=== PATIENT | female | born 2000 | race Caucasian/White ===

== ENCOUNTER 2022-10-13 00:49 | Emergency (ER) | payer MEDICARE, MEDICAID, SELFPAY ==
[2022-10-13 00:51] VITALS: BP 137/89; PULSE 90; RESP 15; TEMP 36.1; O2SAT 98; BMI 24.6
--- NOTE | 2022-10-13 01:18 | CT_ITS ---
INDICATION: abd pain NAUSEA,VOMITING AND DIARRHEA WITH PAIN X 2 WEEKS HX:IBS EXAMINATION: CT ABDOMEN AND PELVIS WITH CONTRAST - CT Abdomen And Pelvis W/ Contrast Injection TECHNIQUE: Helically acquired images were obtained of the abdomen and pelvis following IV contrast. A radiation dose optimization technique was used for this scan. IV Contrast dosage and agent: Oral contrast: None. COMPARISON: None. FINDINGS: LOWER CHEST: Unremarkable. LIVER: Unremarkable. GALLBLADDER/BILE DUCTS: Unremarkable. PANCREAS: Unremarkable. SPLEEN: Unremarkable. ADRENAL GLANDS: Unremarkable. KIDNEYS / URETERS: Unremarkable. BOWEL / MESENTERY: Slight wall thickening of the ascending colon with minimal adjacent stranding. No bowel obstruction. Moderate amount of stool throughout the colon APPENDIX: Identified and normal. No evidence of acute appendicitis. PERITONEUM: No free air. No free fluid. VESSELS: Abdominal aorta is normal caliber. RETROPERITONEUM: Unremarkable. REPRODUCTIVE ORGANS: Left ovary 2.7 cm cyst or follicle. BLADDER: Unremarkable. ABDOMINAL WALL: Unremarkable. BONES: No acute abnormality. OTHER: None. CT/Abdomen/Pelvis W IV Cont ONLY IMPRESSION: Findings suggest mild acute colitis ascending colon. Electronically Signed: Chelsey Leary MD at 3:34 EST ,
[2022-10-13] MEDS: 0.9% Normal Saline 1,000 ML 999 ML IV (01:43)
[2022-10-13] MEDS: Ondansetron 4 MG/2 ML Vial IV (01:43)
[2022-10-13 02:00] LABS: Mucous, Urine 0 SEEN /hpf (<or=2+); Squamous Epithelial Cells - UA 0 SEEN /hpf (5-10)
[2022-10-13 02:02] LABS: Absolute Lymphocyte Count 4.58 X10^3/uL (0.83-4.51); Absolute Neutrophil Count 4.2 X10^3/uL (2.0-7.7); Basophil# 0.03 X10^3/uL; Basophil% 0.3 % (0-1); Eosinophil# 0.01 X10^3/uL; Eosinophils% 0.1 % (0-5); Hematocrit 44.4 % (37-47); Hemoglobin 14.2 g/dL (12.0-15.0); Lymphocyte # 4.58 X10^3/ul (0.83-4.51); Lymphocyte % 49.5 % (19-41); Mean Corpuscular Hgb 28.8 pg (27.0-32.0); Mean Corpuscular Volume 90.1 fL (81-99); Mean Platelet Vol. 9.9 fl (6.2-12.0); Monocyte# 0.41 X10^3/uL; Monocyte% 4.4 % (0-10); NRBC Flagged by Analyzer 0 % (0-5); Neutrophil % 45.5 % (47-70); Platelet Count 269 K/mm3 (150-450); RBC Distribution Width CV 12.7 % (11.6-14.6); RBC Distribution Width SD 41.5 fl (35.1-43.9); Red Blood Count 4.93 M/mm3 (4.2-5.4); White Blood Count 9.3 K/mm3 (4.4-11.0)
[2022-10-13 02:03] LABS: Color, Urine Yellow (Yellow); Glucose, Dipstick Normal (Normal); Ketone-Dipstick Negative (Negative); Leukocyte Esterase-Dipstick Negative /ul (Negative); Nitrite-Dipstick Negative (Negative); Occult Blood-Urine Negative /ul (Negative); Protein-Dipstick Negative (Negative); Urine Bilirubin Dipstick Negative (Negative); Urine Clarity Clear (Clear); Urine Urobilinogen Normal (Normal)
--- NOTE | 2022-10-13 02:26 | EDS_ITS ---
HPI History of Present Illness Chief Complaint: Abd Pain Narrative Narrative: Patient is a 21-year-old female with past medical history of IBS. She reports for the past 2 weeks she has had generalized abdominal discomfort with nausea and frequent urination. She states when symptoms first began she did have a few bouts of vomiting but that has since resolved but nausea has persisted. She also denies any loose stool or diarrhea. She states she took a home test recently which was negative. She states that she is given the symptoms time to resolve and they have not done so and secondary to that she presents for evaluation. PFSH PFSH Home Medications metronidazole 500 mg tablet 500 mg PO TID 7 days #21 tabs 10/13/22 [Rx Last Taken Unknown] promethazine 25 mg tablet 25 mg PO TID PRN nausea and vomiting #21 tabs 10/13/22 [Rx Last Taken Unknown] Allergy/AdvReac Type Severity Reaction Status Date / Time topiramate [From Topamax] Allergy Itching Verified 10/13/22 00:55 ketorolac [From Toradol] AdvReac NEEDS Verified 10/13/22 00:55 FOLLOW-UP prochlorperazine AdvReac NEEDS Verified 10/13/22 00:55 [From Compazine] FOLLOW-UP Social History Smoking Status: Never smoker ROS ROS ED Constitutional Constitutional ED: Denies chills or fever(s) ENT ENT ED: Denies sore throat Cardiovascular Cardiovascular: Denies chest pain Respiratory/Chest Respiratory/Chest: Denies cough or dyspnea Gastrointestinal Gastrointestinal: Reports abdominal pain and nausea; Denies diarrhea or vomiting Genitourinary Genitourinary ED: Reports urinary frequency; Denies dysuria or hematuria Musculoskeletal Musculoskeletal: Denies myalgias Integumentary Denies rash Neurologic Neurologic: Denies headache(s) Hematologic/Lymphatic Hematologic/Lymphatic: Denies easy bleeding or easy bruising EXAM Physical Exam Const Vital Signs: 10/13/22 00:51 Temperature 97.0 F L Temperature Source Temporal Pulse Rate 90 Respiratory Rate 15 Blood Pressure 137/89 H Blood Pressure Mean 105 Pulse Ox 98 Positive well nourished and well developed General Appearance ED: well developed HEENT Reports dry mucous membranes HEENT Narrative: Mucous membranes are slightly dry and tacky without secondary changes to suggest infection in the posterior pharynx Mouth ED: Yes dry mucous membranes Mouth: dry mucous membranes Eyes PERRL and EOMs intact bilaterally General Eye ED: Negative for scleral icterus Neck supple Resp normal respiratory effort and clear to auscultation bilaterally Cardio regular rate and regular rhythm Rate: other Other Details: Radial pulses are plus 2 out of 4 bilaterally are equal and symmetric GI non-distended GI Narrative: Abdomen is soft and nondistended with normoactive bowel sounds. Patient has mild diffuse pain on palpation without voluntary guarding or rigidity. Auscultation: normoactive bowel sounds Palpation: soft Back/Spine no CVA tenderness Extremity normal to inspection Neuro oriented x3 and CN's II-XII intact bilaterally Sensorium / Orientation: alert Psych mental status grossly normal Skin no rashes or lesions noted and skin turgor normal General Skin Exam: Negative for jaundice MDM MDM MDM Narrative Medical decision making narrative: Patient presented to the ER with stable vitals and a soft nonsurgical abdomen. However she reported 2 weeks of generalized abdominal discomfort and there was concern she had an underlying infection such as colitis gallbladder dysfunction pancreatitis diverticulitis related complication or UTI as she also reported urinary frequency. Therefore I did elect to perform basic laboratory studies and based on the prolonged nature of symptoms added a CT scan of her abdomen and pelvis. Labs revealed no clinically significant findings. CT scan however did show changes consistent with mild colitis. She also has a left ovarian cyst but this is small in size and patient is not having any pain in this direct area so I have low concern for torsion or any secondary complication from the cyst. On reevaluation patient is resting comfortably abdomen remains soft and nonsurgical. As CAT scan is showing mild inflammation consistent with colitis and she has had 2 weeks of symptoms I do feel it is necessary to start her on a 7-day course of Flagyl. Otherwise she does not need admitted for pain control or abnormal laboratory values and can be discharged home and follow-up on an outpatient basis. Lab Data Attestation: I reviewed the patient's lab results. Labs: Laboratory Results - last 24 hr 10/13/22 10/13/22 10/13/22 01:40 01:44 01:44 WBC 9.3 RBC 4.93 Hgb 14.2 Hct 44.4 MCV 90.1 MCH 28.8 MCHC 32.0 RDW Std Deviation 41.5 RDW Coeff of [place] 12.7 Plt Count 269 MPV 9.9 Immature Gran % (Auto) 0.200 Neut % (Auto) 45.5 L Lymph % (Auto) 49.[address] [facility] % (Auto) 4.4 Eos % (Auto) 0.1 Baso % (Auto) 0.3 Absolute Neuts (auto) 4.2 Absolute Lymphs (auto) 4.58 H Nucleated RBC % 0 Sodium 138 Potassium 3.7 Chloride 103 Carbon Dioxide 28.0 Anion Gap 7 BUN 9 Creatinine 0.79 Estim Creat Clear Calc 88.34 Est GFR (MDRD) Af Amer 116 Est GFR (MDRD) Non-Af 96 BUN/Creatinine Ratio 11.4 Glucose 90 Calcium 9.3 Total Bilirubin 0.30 Direct Bilirubin 0.09 AST 20 ALT 24 Alkaline Phosphatase 89 Total Protein 7.5 Albumin 4.1 Globulin 3.4 Lipase 217 Serum , Qual Urine Color Yellow Urine Clarity Clear Urine pH 7.0 Ur Specific [place] 1.010 Urine Protein Negative Urine Glucose (UA) Normal Urine Ketones Negative Urine Occult Blood Negative Urine Nitrite Negative Urine Bilirubin Negative Urine Urobilinogen Normal Ur Leukocyte Esterase Negative 10/13/22 01:44 WBC RBC Hgb Hct MCV MCH MCHC RDW Std Deviation RDW Coeff of [place] Plt Count MPV Immature Gran % (Auto) Neut % (Auto) Lymph % (Auto) [facility] % (Auto) Eos % (Auto) Baso % (Auto) Absolute Neuts (auto) Absolute Lymphs (auto) Nucleated RBC % Sodium Potassium Chloride Carbon Dioxide Anion Gap BUN Creatinine Estim Creat Clear Calc Est GFR (MDRD) Af Amer Est GFR (MDRD) Non-Af BUN/Creatinine Ratio Glucose Calcium Total Bilirubin Direct Bilirubin AST ALT Alkaline Phosphatase Total Protein Albumin Globulin Lipase Serum , Qual NEGATIVE Urine Color Urine Clarity Urine pH Ur Specific [place] Urine Protein Urine Glucose (UA) Urine Ketones Urine Occult Blood Urine Nitrite Urine Bilirubin Urine Urobilinogen Ur Leukocyte Esterase Radiography Diagnostic Testing: Clinical Impression(s) from Imaging Studies Abdomen/Pelvis CT 10/13/22 01:18 IMPRESSION: Findings suggest mild acute colitis ascending colon. Electronically Signed: Chelsey Leary MD at 3:34 EST , Discharge Plan Triage Chief Complaint: Abd Pain ED Provider: Paul Aguirre Dx/Rx/DC Orders Clinical Impression: Colitis, Ovarian cyst, Nausea Instructions: ED Understanding Colitis Prescriptions: New metronidazole 500 mg tablet 500 mg PO TID 7 Days Qty: 21 0RF promethazine 25 mg tablet 25 mg PO TID PRN (Reason: nausea and vomiting) Qty: 21 0RF Primary Care Provider: Care Physician,No Primary Referrals: Deniz No MD [Med Staff - Field Laboratory Operator] - Care Physician,No Primary [Primary Care Provider] - Activity Restrictions/Additional Instructions: Please take your medication as directed secondary to the colitis found on your CT scan. If you have any further concerns or worsening of symptoms despite taking her medication please return to the ER for repeat evaluation Disposition Disposition: Home, Self Care
[2022-10-13 02:46] LABS: AST(SGOT) 20 U/L (15-37); Alanine Aminotransfer ALT/SGPT 24 U/L (13-56); Albumin, Serum 4.1 g/dL (3.2-5.0); Alkaline Phosphatase 89 U/L (45-117); Anion Gap 7 (5-15); BUN 9 mg/dL (7-18); BUN/Creat Ratio 11.4 RATIO (10-20); Bilirubin, Direct 0.09 mg/dL (0.00-0.30); Calcium,Total 9.3 mg/dL (8.5-10.1); Chloride 103 mmol/L (98-107); Creatinine, Serum 0.79 mg/dL (0.55-1.02); EST Glomerular Filtration Rate 96 mL/min (>60); Est Glom Filt Rate - Afr Amer 116 mL/min (>60); Estimated Creatinine Clearance 88.34 ml/min; Globulin 3.4 g/dL (2.2-4.2); Glucose 90 mg/dL (74-106); Lipase 217 U/L (73-393); Potassium 3.7 mmol/L (3.5-5.1); Protein, Total 7.5 g/dL (6.4-8.2); Sodium Level 138 mmol/L (136-145)
[2022-10-13 02:59] LABS: Internal QC Validated? YES +Cl - CLEAR BKGD; Pregnancy, Serum, hCG Quali. NEGATIVE Negative
[2022-10-13 03:42] VITALS: BP 132/65; PULSE 76; RESP 18
[2022-10-13 03:56] LABS: Amorphous Sediment 1+; Bacteria 1+ /hpf (None Seen); Red Blood Cells-Urine 0-5 SEEN /hpf (0-5); White Blood Cells 0-5 SEEN /hpf (0-5)
== END 2022-10-13 03:53 | disposition home or self-care (01) ==
PROVIDERS: Emergency Provider Emergency Medicine; Visit Provider Emergency Medicine
DX: K52.9 Noninfective gastroenteritis and colitis, unspecified (principal); N83.202 Unspecified ovarian cyst, left side
CPT/HCPCS: 74177; 80048; 80076; 81001; 83690; 84703; 85025; 96374; 99283; J7030; Q9967; J2405